=== PATIENT | male | born 1990 | race Caucasian/White ===

== ENCOUNTER 2021-04-23 08:16 | Outpatient (REF) | payer MEDICAID, SELFPAY ==
--- NOTE | ~2021-04-23 | XR_ITS ---
EXAMINATION: XR SHOULDER, LEFT CLINICAL INFORMATION: Left shoulder pain. COMPARISON: None TECHNIQUE: Four views of the left shoulder. FINDINGS: The acromioclavicular joint space measures approximately 0.7 cm. The inferior cortical surface is slightly offset superiorly when compared to the inferior cortical surface of the acromion best seen on the Y projection. The glenohumeral alignments are intact. The soft tissues are unremarkable. XR/XR shoulder LT min 2V IMPRESSION: Radiographs of the left shoulder shows grade 1-2 left acromioclavicular injury. The glenohumeral alignments are intact.
== END 2021-04-23 08:17 | disposition home or self-care (01) ==
LOC: HO.HOSX 08:16
PROVIDERS: Visit Provider Physician Assistant
DX: M25.512 Pain in left shoulder (principal)
CPT/HCPCS: 73030

== ENCOUNTER 2023-04-07 15:32 | Outpatient (REF) | payer MEDICAID, SELFPAY ==
[2023-04-07 17:46] LABS: Alanine Aminotransferase 17 U/L (0-40); Aspartate Amino Transferase 25 U/L (5-37); Estimated Glomerular Filt Rate > 60
[2023-04-08 09:15] LABS: Syphilis Screen Nonreactive (Nonreactive)
[2023-04-08 09:36] LABS: HBS Num1 48.88 mIU/mL (0-7.99); HBc Num1 0.07 S/CO (0.00-0.79); HBsAGNum1 0.42 S/CO (0.00-0.99); HIV AB/AG Nonreactive (Nonreactive); HIV Num 1 0.05 S/CO (0.00-0.99); Hepatitis B Core Antibody Nonreactive (Nonreactive); Hepatitis B Surface Antigen Negative (Negative); ~HepC Num1 0.05 S/CO (0.00-0.79); ~Hepatitis B Surface Antibody REACTIVE (Nonreactive); ~Hepatitis C Antibody Nonreactive (Nonreactive)
[2023-04-09 13:48] LABS: HIV RNA PCR Qn Copies NOT DETECTED copies/mL (NOT DETECTED); HIV RNA PCR Qn Log Copies NOT DETECTED (NOT DETECTED)
== END 2023-04-07 15:33 | disposition home or self-care (01) ==
LOC: HO.HHCL 15:32
PROVIDERS: Visit Provider Nurse Practitioner Primary Care
DX: Z72.51 High risk heterosexual behavior (principal); Z20.6 Contact with and (suspected) exposure to human immunodeficiency virus [HIV]
CPT/HCPCS: 36415; 82565; 84450; 84460; 86704; 86706; 86780; 86803; 87340; 87389; 87536

== ENCOUNTER 2023-05-05 15:37 | Outpatient (REF) | payer MEDICAID, SELFPAY ==
[2023-05-06 03:44] LABS: CT PCR NOT DETECTED (Not Detect.); NG PCR NOT DETECTED (Not Detect.)
[2023-05-06 04:15] LABS: HIV AB/AG Nonreactive (Nonreactive); HIV Num 1 0.06 S/CO (0.00-0.99)
[2023-05-07 18:09] LABS: HIV RNA PCR Qn Copies NOT DETECTED copies/mL (NOT DETECTED); HIV RNA PCR Qn Log Copies NOT DETECTED (NOT DETECTED)
== END 2023-05-05 15:38 | disposition home or self-care (01) ==
LOC: HO.HHCL 15:37
PROVIDERS: Visit Provider Nurse Practitioner Primary Care
DX: Z11.3 Encounter for screening for infections with a predominantly sexual mode of transmission (principal); Z20.6 Contact with and (suspected) exposure to human immunodeficiency virus [HIV]; Z79.899 Other long term (current) drug therapy
CPT/HCPCS: 0353U; 36415; 87389; 87536

== ENCOUNTER 2023-07-04 19:11 | Outpatient (REF) | payer MEDICAID, SELFPAY | END 2023-07-04 19:12 | disposition home or self-care (01) | LOC: HO.HHCLNP 19:11 | PROVIDERS: Visit Provider Registered Nurse | DX: H60.312 Diffuse otitis externa, left ear (principal) | CPT/HCPCS: 87070; 87077; 87147; 87186; 87205 ==

== ENCOUNTER 2024-01-29 15:57 | Outpatient (REF) | payer MEDICAID, SELFPAY ==
[2024-01-29 17:48] LABS: Estimated Glomerular Filt Rate > 60
[2024-01-30 03:46] LABS: Syphilis Screen Nonreactive (Nonreactive)
[2024-01-30 04:10] LABS: ~Hepatitis C Antibody Nonreactive (Nonreactive)
[2024-01-30 14:39] LABS: HIV RNA PCR Qn Copies NOT DETECTED copies/mL (NOT DETECTED); HIV RNA PCR Qn Log Copies NOT DETECTED (NOT DETECTED)
== END 2024-01-29 15:58 | disposition home or self-care (01) ==
LOC: HO.HHCL 15:57
PROVIDERS: Visit Provider Internal Medicine Geriatric Medicine
DX: Z11.3 Encounter for screening for infections with a predominantly sexual mode of transmission (principal)
CPT/HCPCS: 36415; 82565; 86780; 86803; 87536

== ENCOUNTER 2024-05-18 10:43 | Outpatient (REF) | payer MEDICAID, SELFPAY ==
[2024-05-18 14:28] LABS: MANUAL DIFF FLAG NO
[2024-05-18 14:34] LABS: Basophils Percent Auto 0.5 % (0-2); Eosinophils Absolute Auto 0.1 X10*3/uL (0.0-0.4); Hematocrit 42.6 % (42.0-52.0); Hemoglobin 15.1 g/dl (14.0-18.0); Imm Gran Abs Auto 0.01 X10*3/uL (0.00-0.03); Imm Gran Pct Auto 0.2 % (0.0-0.4); Lymphocytes Absolute Auto 2.7 X10*3/uL (1.2-4.9); Lymphocytes Percent Auto 41.5 % (20-40); Mean Corpuscular HGB Conc 35.4 g/dl (31.0-36.0); Mean Corpuscular Hemoglobin 30.9 pg (27.0-33.0); Mean Corpuscular Volume 87.1 fL (80.0-98.0); Mean Platelet Volume 10.7 fL (9.4-12.4); Monocytes Absolute Auto 0.6 X10*3/uL (0.1-1.2); Monocytes Percent Auto 8.4 % (2-11); Neutrophils Absolute Auto 3.1 x10*3/uL (2.0-8.3); Neutrophils Percent Auto 47.4 % (45-73); Platelet Count 215 X10*3/uL (160-400); Red Blood Count 4.89 X10*6/uL (4.60-5.80); White Blood Count 6.6 X10*3/uL (4.8-10.8)
[2024-05-18 18:22] LABS: Alanine Aminotransferase 18 U/L (0-40); Albumin Level 4.5 g/dL (3.5-5.0); Alkaline Phosphatase 108 U/L (39-117); Anion Gap 14 (12-20); Aspartate Amino Transferase 29 U/L (5-37); Bilirubin Total 0.6 mg/dL (0.0-1.0); Blood Urea Nitrogen 12 mg/dL (9-16); Calcium 9.6 mg/dL (8.4-10.2); Carbon Dioxide 24 mmol/L (22-29); Chloride 103 mmol/L (96-108); Cholesterol 194 mg/dL (<200); Estimated Glomerular Filt Rate > 60; Glucose Random 84 mg/dL (60-115); HDL Cholesterol 42 mg/dL (>40); LDL Cholesterol Calculated 132 mg/dL (<100); Potassium 3.4 mmol/L (3.3-5.1); Sodium 138 mmol/L (135-145); Total Protein 7.4 g/dL (6.5-8.0); Triglycerides 101 mg/dL (<150)
[2024-05-19 05:02] LABS: Syphilis Screen Nonreactive (Nonreactive)
[2024-05-19 05:22] LABS: HIV AB/AG Nonreactive (Nonreactive); HIV Num 1 0.05 S/CO (0.00-0.99); ~HepC Num1 0.08 S/CO (0.00-0.79); ~Hepatitis C Antibody Nonreactive (Nonreactive)
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
== END 2024-05-18 10:44 | disposition home or self-care (01) ==
LOC: HO.HHCL 10:43
PROVIDERS: Internal Medicine Geriatric Medicine; Visit Provider Emergency Medicine
DX: Z00.00 Encounter for general adult medical examination without abnormal findings (principal); Z11.3 Encounter for screening for infections with a predominantly sexual mode of transmission; Z13.220 Encounter for screening for lipoid disorders; Z13.1 Encounter for screening for diabetes mellitus
CPT/HCPCS: 36415; 80053; 80061; 82550; 85025; 86780; 86803; 87389

== ENCOUNTER 2024-10-31 14:08 | Outpatient (REF) | payer MEDICARE, MEDICAID, SELFPAY ==
--- NOTE | ~2024-10-31 | MR_ITS ---
EXAMINATION: MR BRAIN WITHOUT IV CONTRAST HISTORY: Migraines worsening in frequency intensity. TECHNIQUE: Sagittal T1, and axial T1, FLAIR, T2, gradient echo, and diffusion weighted MR images of the brain were obtained. COMPARISON: Comparison is made with the prior examination dated 04/01/2019. FINDINGS: The brain parenchyma is unremarkable, demonstrating normal da silva/white differentiation. No foci of abnormal signal intensity are identified. The ventricular system is normal in size and configuration. There is no mass effect or midline shift. No intra or extra-axial fluid collections are identified. There are no foci of restricted diffusion. Normal vascular flow voids are noted in the basilar and carotid arteries. The visualized paranasal sinuses are clear. MR/MR head/brain wo con IMPRESSION: Unremarkable MRI of the brain without contrast. Electronically signed by: Pop Cortez MD 11/01/2024 07:36 AM EDT
--- OUTSIDE RECORDS SUMMARY | 2024-10-31 14:13 | XMS_ITS | Clinical Summary ---
Author Organization [employer] [facility] Address [address] [facility] 7t [place] [address] Care Team Providers Care Lay Out Machine Operator Name Role Phone Name, Gregory EDEN Primary Care Provider [phone] Allergies Active Allergy Reactions Criticality Noted Date Comments Fluphenazine 01/17/2017 Other reaction(s): Dystonic reaction Penicillin G 01/17/2017 Other reaction(s): Hives / Skin Rash Pt told by dad he was allergic to pcn, he has taken amoxicillin, augmentin and other medications without issue in the past Medications * This document contains information received from the source organization and may not represent a complete record from that organization. diphenhydrAMINE (BENADryl) 25 MG capsuleIndicati ons:Allergy, initial encounter TAKE 1 CAPSULE BY MOUTH EVERY 24 HOURS NEEDED 30 capsule 2 08/20/19 23 Active valACYclovir (Valtrex) 1 g tabletIndicatio ns:Cold sore take 2 tablet by oral route twice daily for 1 day at first sign of cold sore 4 tablet 1 02/19/20 23 Active escitalopram (Lexapro) 20 MG tablet Take 20 mg by mouth in the morning. 03/18/20 23 Active clonazePAM (KlonoPIN) 2 MG tablet Take 2 mg by mouth 2 times daily. 03/18/20 23 Active mupirocin (Bactroban) 2 % ointment Apply topically 2 times daily. Apply in each nostril 2x/day for 5 days. 22 g 08/06/19 24 Active fluticasone (Flonase) 50 MCG/ACT nasal spray Administer 2 sprays into each nostril Once per day. Shake gently. Before first use, prime pump. After use, clean tip and replace cap. 16 g 2 04/07/20 24 025 Active docusate sodium (Colace) 100 MG capsule TAKE 1 CAPSULE BY MOUTH EVERY DAY 90 capsule 1 06/01/20 24 Active doxycycline (Vibra-Tabs) 100 MG tabletIndicatio ns:Unprotected sexual intercourse Take 2 tabs once orally within 72 hours of condomless sex,. Take with a full glass of water and do not lie down for at least 30 minutes after. 30 tablet 11 06/08/20 24 Active lactulose (Chronulac) 10 GM/15ML solution TAKE 15 ML BY MOUTH EVERY DAY 473 mL 1 08/31/19 25 Active Descovy 200-25 MG tabletIndicatio ns:On pre-exposure prophylaxis for HIV TAKE 1 TABLET BY MOUTH EVERY DAY IN THE MORNING 30 tablet 2 09/25/19 25 Active SUMAtriptan (Imitrex) 25 MG tabletIndicatio ns:Chronic migraine with aura without status migrainosus, not intractable Take 1 tablet (25 mg) by mouth 1 (one) time if needed for migraine. May repeat dose once in 2 hours if no relief. Do not exceed 2 doses in 24 hours. 15 tablet 10/16/19 25 Active fexofenadine (Harriett) 180 MG tablet TAKE 1 TABLET BY MOUTH EVERY DAY NEEDED FOR ALLERGIES 90 tablet 1 10/27/19 25 Active fexofenadine (Harriett) 180 MG tablet Take 1 tablet (180 mg) by mouth if needed each day (Allergies). 90 tablet 1 04/07/20 24 025 Discontinued Active Problems Problem Noted Date Diagnosed Date On pre-exposure prophylaxis for HIV 05/30/2022 Low vitamin D level 08/03/2019 04/16/2023 Recurrent major depression 09/10/201804/15 Moderate anxiety 09/10/2018 04/16/2023 Chronic insomnia 04/23/2018 04/16/2023 Panic disorder 03/18/2018 04/16/2023 Allergic rhinitis 02/19/2017 04/16/2023 Resolved Problems Problem Noted Date Diagnosed Date Resolved Date Paresthesia of lower extremity 04/16/2023 04/16/2023 04/07/2024 Encounters Date Type Department Care Team Description 10/26/2024 Refill [facility] [address] [place] [phone] Gregory Barfield MD 10/15/2024 1:00 PM EDT Office Visit [facility] [address] [place] [address] [place], [place], GENERAL ADJUSTER Chronic migraine with aura without status migrainosus, not intractable (Primary Dx); Left facial numbness 10/15/2024 Travel 10/14/2024 Telephone [facility] [address] [place] [phone] Gregory Barfield MD Nurse Triage 10/06/2024 3:30 PM EDT Immunization [facility] [address] [place] [phone] Tiffanie Gomez RN Encounter for immunization 09/24/2024 Refill [facility] [address] [place] [phone] Gregory Barfield MD On pre-exposure prophylaxis for HIV 09/09/2024 Telephone [facility] [address] [place] [phone] Gregory Barfield MD Immunizations (Call was placed to reschedule patient for a later time/date due to [facility] being closed the day of previous appt. New appt 10/06/24 at 2:00pm, I was unable to reach the patient and left a voicemail with call back info.) 08/29/2024 Refill [facility] [address] [place] [phone] Gregory Barfield MD from Last 3 Months Immunizations Immunization Administration Dates Next Due Hep A, Adult 04/07/2024,10/01/2018 Hep B, adult 10/06/2024,05/18/2024,04/07/2024 Tdap 09/10/2018 Family History Medical History Relation Name Comments Lung cancer Paternal Grandmother Relation Name Status Comments Paternal Grandmother Social History Tobacco Use Types Packs/Day Years Used Date Smoking Tobacco: Never Smokeless Tobacco: Never Tobacco Cessation:Counseling Given: Not Answered Alcohol Use Standard Drinks/Week Comments Never 0 (1 standard drink = 0.6 oz pur e alcohol) Depression Answer Date Recorded Patient Health Questionnaire-9 Score 13 04/07/2024 Patient Health Questionnaire-9 Score 13 04/07/2024 Last PHQ-9: Questionnaire Data Not on file 1 Housing Stability Answer Date Recorded What is your housing situation today? I have eliazar sawant 04/07/[address] you li ve. Do you have problems with any of the following? Pests such as bugs, ants, or mice 04/07/2024 Food Insecurity Answer Date Recorded Within the past 12 months, y ou worried that your food would run out before you got money to buy more: Sometimes True 2023 Within the past 12 months,th e food you bought just didn't last and you didn't have enough money to get more: Sometimes True 04/07/2024 Transportation Answer Date Recorded In the past 12 months, has l ack of transportation kept you from medical appts, meetings, work or from getting things needed for daily living? I am not sure 04/07/2024 Utilities Answer Date Recorded In the past 12 months, has t he electric, gas, oil or water company threatened to shut off services in your home? No 04/16/2023 Depression Answer Date Recorded Patient Health Questionnaire-2 Score 2 04/07/2024 Internet Access Answer Date Recorded Internet Access Q1 Yes 03/31/2024 Internet Access Q2 Not on file 03/31/2024 Sex and Gender Information Value Date Recorded Sex Assigned at Male 04/15/2022 10:31 AM EDT Legal Sex Male 10:31 AM EDT Gender Identity Male 04/15/2022 10:31 AM EDT Sexual Orientation Lesbian or Presley 04/15/2022 10 :31 AM EDT Last Filed Vital Signs Vital Sign Reading Time Taken Comments Blood Pressure 128/88 10/15/2024 1:55 PM EDT Pulse 106 10/15/2024 1:23 PM EDT Temperature 36.7 ??C (98 ??F) 10/15/2024 1:23 PM EDT Respiratory Rate 17 10/15/2024 1:23 PM EDT Oxygen Saturation 96% 04/07/2024 3:04 PM EDT Inhaled Oxygen Concentration - - Weight 90.4 kg (199 lb 6.4 oz) 10/15/2024 1:23 P M EDT Height 177.8 cm (5' 10 ) 10/15/2024 1:23 PM EDT Body Mass Index 28.61 10/15/2024 1:23 PM EDT Plan of Treatment Health Maintenance Due Date Last Done Comments Family Planning (PISQ) 2004 COVID-19 Vaccine ( season) 2024 Influenza Vaccine (#1) 2024 Alcohol/Substance Use Screening 04/07/2025 04/07/2024 Depression Screening 04/07/2025 04/07/2024, 04/07/20 24 SDOH Screening 04/07/2025 04/07/2024 Tobacco Screening 10/18/2025 10/18/2024 DTaP/Tdap/Td Vaccines (2 - Td or Tdap) 09/10/2028 09/10/2018 Lipid Panel 05/18/2029 05/18/2024, 09/03/2021 Zoster Vaccines (1 of 2) 2039 RSV Patients and Patients Aged 60 years or older (1 - 1-dose 75+ series) 2064 Hepatitis A Vaccines Completed 04/07/2024, 10/02/19 19 HIV Screening Completed 05/18/2024, 01/14, 05/05/2023, Additional history exists Hepatitis C Screening Completed 05/18/2024 , 01/29/2024, 04/07/2023, Additional history exists Hepatitis B Vaccines Completed 10/06/2024, 05/18/2024, 04/07/2024 HIB Vaccines Aged Out No longer eligi ble based on patient's age to complete this topic HPV Vaccines Aged Out No longer eligi ble based on patient's age to complete this topic IPV Vaccines Aged Out No longer eligi ble based on patient's age to complete this topic Meningococcal B Vaccine Aged Out No l onger eligible based on patient's age to complete this topic Meningococcal Vaccine Aged Out No anjel matt eligible based on patient's age to complete this topic Pneumococcal Vaccine: Pediatrics (0 to 5 Years) and At-Risk Patients (6 to 49) Years) Aged Out No longer eligible based on patient's age to complete this topic RSV under 20 months Aged Out No longe r eligible based on patient's age to complete this topic Rotavirus Vaccines Aged Out No longer eligible based on patient's age to complete this topic Procedures Procedure Name Priority Date/Time Associated Diagnosis Comments HEPATITIS C ANTIBODY Routine 05/18/2024 10:50 AM EST Screening for STD (sexually transmitted disease) HIV 1/2 ANTIGEN/ANTIBODY, FOURTH GENERATION W/RFL Routine 05/18/2024 10:50 AM EST Screening for STD (sexually transmitted disease) LIPID PANEL, STANDARD Routine 05/18/2024 10:50 AM EST PE (physical exam), routine Screening for cholesterol level from Last 3 Months or Most Recently Relevant to Health Maintenance Results * Hepatitis C Ab (05/18/2024 10:50 AM EST) Hepatitis C Antibody Nonreactive Nonreactive [facility] Comment:Antibodies to HCV no t detected; does not exclude early acuteHCV infection. 05/18/2024 10:5 0 AM EST 05/18/2024 2:31 PM EST us Deshawn Lorenzana MD LAB BLOOD ORDERABLES Final Resul t [facility] [address] [place] [phone] * HIV-1/2 Antigen and Antibodies, Fourth Generation, with Reflexes (05/18/2024 10:50 AM EST) HIV AB/AG Nonreactive Nonreactive [facility] Comment:HIV-1 p24 Ag and/or HIV-1/HIV-2 Ab not detected.A test result that is nonreactive does not exclude thepossibility of exposure to or infection with HIV-1 and/orHIV-2. Nonreactive results in this assay for individualswith prior exposure to HIV-1 and/or HIV-2 may be due toantigen and antibody levels that are below the limit ofdetection of this assay.The [email or web address] HIV Ag/Ab Combo assay result andsupplemental assay results should be interpreted inconjunction with the patient's clinical presentation,history and other laboratory results. If the results areinconsistent with clinical evidence, additional testing issuggested to confirm the result. 05/18/2024 10:5 0 AM EST 05/18/2024 2:31 PM EST Deshawn Lorenzana MD LAB BLOOD ORDERABLES Final Resul t Performing Organization Address [facility] Co de Phone Number [facility] [address] [place] [phone] * (ABNORMAL) Lipid Panel, Standard (05/18/2024 10:50 AM EST) Triglycerides 101 <150 mg/dL [facility] Comment:Desirable Triglyceri de: less than 150 mg/dLBorderline High Triglyceride 150-199 mg/dLHigh Triglyceride: 200-499 mg/dLVery High Triglyceride: greater than or equal to 5OO mg/dL Cholesterol 194 <200 mg/dL [facility] Comment:Desirable Cholestero l: less than 200 mg/dLBorderline High Cholesterol: 200-239 mg/dLHigh Cholesterol: greater than 239 mg/dL LDL Cholesterol Calculated 132(H) <100 mg/dL [facility] Comment:Desirable LDL: less than 100 mg/dLNear Optimal/Above Optimal LDL: 110- 129 mg/dLBorderline High LDL: 130-159 mg/dLHigh LDL: 160-189 mg/dLVery High LDL: greater than or equal to 190 mg/dL HDL Cholesterol 42 >40 mg/dL [facility] Comment:Desirable HDL: great er than 40 mg/dL Note: This HDL assay may give artificially low results in patients with liver disease. Blood Venous blood specimen / Unknown 05/18/2024 10:50 AM EST 05/18/2024 2:31 PM EST Gregory Barfield MD LAB BLOOD ORDERABLES Final Resul t Performing Organization Address [facility] Co de Phone Number [facility] [address] [place] [phone] from Last 3 Months or Most Recently Relevant to Health Maintenance Insurance [facility] [address] Natalie [place] [facility] C3 [facility] STANDARD Member Subscriber Plan / Payer ( fective 2024-Present) Name:Max Gorman Relation to Subscriber:Self Name:Max Gorman Payer ID:Not on file Group ID:Not on file Type:Medicaid Address: [address] MED[address]ARE 1 [place] [id number] 1 Natalie [place] Care Teams Lay Out Machine Operator Relationship Specialty Start Date End Date Name, MD Gregory [address] [place] [address] PCP - General Family Medicine 07/20/19
--- OUTSIDE RECORDS SUMMARY | 2024-10-31 14:13 | XMS_ITS | Encounter Summary ---
Author Organization [employer] Address [address] [facility] 7t [place] [address] Care Team Providers Care Neighborhood Conservation Officer Name Role Phone Name, Gregory EDEN Primary Care Provider [phone] Reason for Visit * Reason Comments Med Refill Encounter Details Date Type Department Care Team ([facility] Contact Info) Description 04/25/2024 Refill [facility] [address] [place], [place] [phone] Name, MD Gregory [address] [place], [place] [phone] On pre-exposure prophylaxis for HIV Social History Tobacco Use Types Packs/Day Years Used Date Smoking Tobacco: Never Smokeless Tobacco: Never Alcohol Use Standard Drinks/Week Comments Never 0 [...] or Presley 04/15/2022 10 :31 AM EDT documented as of this encounter Plan of Treatment Not on file documented as of this encounter Visit Diagnoses Diagnosis On pre-exposure prophylaxis for HIV documented in this encounter Additional Health Concerns Assessment Noted Time PHQ-9 Depression Total Score: 13 024 3:46 PM EDT documented as of this encounter Care Teams Neighborhood Conservation Officer Relationship Specialty Start Date End Date Name, MD Gregory [address] [place] [address] PCP - General Family Medicine 07/20/19 documented as of this encounter
--- OUTSIDE RECORDS SUMMARY | 2024-10-31 14:13 | XMS_ITS | Encounter Summary ---
Author Organization [employer] Address [address] [facility] 7t [place] [address] Care Team Providers Care Retirement Sales Consultant Name Role Phone Name, Gregory EDEN Primary Care Provider [phone] Reason for Visit * Reason Comments Med Refill Encounter Details Date Type Department Care Team ([facility] Contact Info) Description 05/15/2023 Refill [facility] [address] [place], [place] [phone] Karyna Sosa FNP [address] [place] [address] Social History Tobacco Use Types Packs/Day Years Used Date Smoking Tobacco: Never Smokeless Tobacco: Never Housing Stability Answer Date Recorded What is your housing situation today? I have eliazar sawant 04/16/[address] you li ve. Do you have problems with any of the following? None of the above 04/16/2023 Food Insecurity Answer Date Recorded Within the past 12 months, y ou worried that your food would run out before you got money to buy more: Never True 04/16/2023 Within the past 12 months,th e food you bought just didn't last and you didn't have enough money to get more: Never True 06/2022 Transportation Answer Date Recorded In the past 12 months, has l ack of transportation kept you from medical appts, meetings, work or from getting things needed for daily living? No 04/16/2023 Utilities Answer Date Recorded In the past 12 months, has t he electric, gas, oil or water company threatened to shut off services in your home? No 04/16/2023 Depression Answer Date Recorded Patient Health Questionnaire-2 Score 4 04/16/2023 Sex and Gender Information Value Date Recorded Sex Assigned at Male 04/15/2022 10:31 AM EDT Legal Sex Male 10:31 AM EDT Gender Identity Male 04/15/2022 10:31 AM EDT Sexual Orientation Lesbian or Presley 04/15/2022 10 :31 AM EDT documented as of this encounter Plan of Treatment Not on file documented as of this encounter Visit Diagnoses Not on filedocumented in this encounter Care Teams Retirement Sales Consultant Relationship Specialty Start Date End Date Name, MD Gregory [address] [place] [address] PCP - General Family Medicine 07/20/19 documented as of this encounter
--- OUTSIDE RECORDS SUMMARY | 2024-10-31 14:13 | XMS_ITS | Encounter Summary ---
Author Organization [employer] Address [address] [place] [address] 7t [place] [address] Care Team Providers Care Station Repairer Name Role Phone Name, Gregory EDEN Primary Care Provider [phone] Encounter Details Date Type Department Care Team ([facility] st Contact Info) Description 08/19/2022 Orders Only [facility] [address] [place] [address] Chantelle Jurado LPN Social History Tobacco Use Types Packs/Day Years Used Date Smoking Tobacco: Never Assessed Sex and Gender Information Value Date Recorded [...] on filedocumented in this encounter Care Teams Station Repairer Relationship Specialty Start Date End Date Name, MD Gregory [address] [place] [phone] PCP - General Family Medicine 07/20/19 documented as of this encounter
--- OUTSIDE RECORDS SUMMARY | 2024-10-31 14:13 | XMS_ITS | Encounter Summary ---
Author Organization [facility] Address [address] [facility] 7t [place] [address] Care Team Providers Care Project Controls Specialist Name Role Phone Name, Gregory EDEN Primary Care Provider [phone] Reason for Visit * Reason Comments Med Refill Encounter Details Date Type Department Care Team ([facility] Contact Info) Description 06/29/2024 Refill [facility] [address] [place], [place] [phone] Name, MD Gregory [address] [place], [place] [phone] Social History Tobacco Use Types Packs/Day Years [...] Diagnoses Not on filedocumented in this encounter Additional Health Concerns Assessment Noted Time PHQ-9 Depression Total Score: 13 024 3:46 PM EDT documented as of this encounter Care Teams Project Controls Specialist Relationship Specialty Start Date End Date Name, MD Gregory [address] [place] [address] PCP - General Family Medicine 07/20/19 documented as of this encounter
--- OUTSIDE RECORDS SUMMARY | 2024-10-31 14:13 | XMS_ITS | Encounter Summary ---
Author Organization [employer] Address [address] [facility] 7t [place] [address] Care Team Providers Care Space Scheduler Name Role Phone Name, Gregory EDEN Primary Care Provider [phone] Reason for Visit * Reason Comments Med Refill Encounter Details Date Type Department Care Team ([facility] Contact Info) Description 12/31/2023 Refill [facility] MEDICINE [address] [place], [place] [phone] Name, MD Gregory [address] [place], [place] [phone] On pre-exposure prophylaxis for HIV Social History Tobacco Use Types Packs/Day Years Used Date Smoking Tobacco: Never Smokeless Tobacco: Never Depression Answer Date Recorded Patient Health Questionnaire-9 Score 13 07/07/2023 Patient Health Questionnaire-9 Score 13 07/07/2023 Last PHQ-9: Questionnaire Data Not on file 0 07/07/2023 Housing Stability Answer Date Recorded What is [...] Date Recorded Patient Health Questionnaire-2 Score 2 07/07/2023 Sex and Gender Information Value Date Recorded [...] Time PHQ-9 Depression Total Score: 13 024 8:29 AM EST documented as of this encounter Care Teams Space Scheduler Relationship Specialty Start Date End Date Name, MD Gregory [address] [place] [address] PCP - General Family Medicine 07/20/19 documented as of this encounter
--- OUTSIDE RECORDS SUMMARY | 2024-10-31 14:13 | XMS_ITS | Encounter Summary ---
Author Organization [employer] Address [address] [facility] 7t [place] [address] Care Team Providers Care Sheep And Wheat Farmer Name Role Phone Name, Gregory EDEN Primary Care Provider [phone] Reason for Visit * Reason Comments Med Refill Encounter Details Date Type Department Care Team ([facility] Contact Info) Description 10/26/2024 Refill [facility] MEDICINE 230 [place], [place] [phone] Name, MD Gregory 230 [place], [place] [phone] Social History Tobacco Use Types Packs/Day Years [...] documented as of this encounter Care Teams Sheep And Wheat Farmer Relationship Specialty Start Date End Date Name, MD Gregory 230 [place] [address] PCP - General Family Medicine 07/20/19 documented as of this encounter
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
== END 2024-10-31 14:09 | disposition home or self-care (01) ==
LOC: HO.MRI 14:08
PROVIDERS: PCP Internal Medicine Geriatric Medicine; Visit Provider Registered Nurse
DX: G43.E09 Chronic migraine with aura, not intractable, without status migrainosus (principal); R20.0 Anesthesia of skin
CPT/HCPCS: 70551

== ENCOUNTER → 2024-10-31 14:20 | Outpatient (BNV) | payer MEDICARE, MEDICAID, SELFPAY | PROVIDERS: PCP Internal Medicine Geriatric Medicine; Visit Provider Radiology Diagnostic Radiology | DX: G43.909 Migraine, unspecified, not intractable, without status migrainosus (principal) | CPT/HCPCS: 70551 ==

== ENCOUNTER 2025-03-02 13:08 | Outpatient (REF) | payer MEDICARE, MEDICAID, SELFPAY ==
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
[2025-03-02 16:34] LABS: Anion Gap 11 (12-20); Blood Urea Nitrogen 9 mg/dL (9-16); Calcium 9.4 mg/dL (8.4-10.2); Carbon Dioxide 27 mmol/L (22-29); Chloride 106 mmol/L (96-108); Cholesterol 186 mg/dL (<200); Estimated Glomerular Filt Rate > 60; HDL Cholesterol 41 mg/dL (>40); Potassium 3.7 mmol/L (3.3-5.1); Sodium 140 mmol/L (135-145); Triglycerides 118 mg/dL (<150)
--- OUTSIDE RECORDS SUMMARY | 2025-03-02 16:46 | XMS_ITS | Encounter Summary ---
Author Organization [employer] Address [address] [facility] 7t [place] [address] Care Team Providers Care Senior Sales Operations Analyst Name Role Phone Name, Gregory EDEN Primary Care Provider [phone] Reason for Visit * Reason Comments Med Refill Encounter Details Date Type Department Care Team ([facility] Contact Info) Description 04/25/2024 Refill [facility] MEDICINE 230 [place], [place] [phone] Name, MD Gregory [address] [place], [place] [phone] On pre-exposure prophylaxis for HIV Social History [...] as of this encounter Plan of Treatment Upcoming Encounters Date Type Department Care Team (Late st Contact Info) Description 04/19/2025 2:45 PM EST Office Visit [facility] MEDICINE [address] [place] [phone] NameGregory MD 230 [place] [address] documented as of this encounter Visit Diagnoses Diagnosis On pre-exposure prophylaxis for HIV documented in this encounter Additional Health Concerns Assessment Noted Time PHQ-9 Depression Total Score: 13 024 3:46 PM EDT documented as of this encounter Care Teams Senior Sales Operations Analyst Relationship Specialty Start Date End Date Gregory Barfield MD [address] [place] [address] PCP - General Family Medicine 07/20/19 documented as of this encounter
--- OUTSIDE RECORDS SUMMARY | 2025-03-02 16:46 | XMS_ITS | Encounter Summary ---
Author Organization [employer] Address [address] [facility] 7t [place] [address] Care Team Providers Care Warehouse Team Member Name Role Phone Name, Gregory EDEN Primary Care Provider Reason for Visit * Reason Comments Med Refill Encounter Details Date Type Department Care Team ([facility] Contact Info) Description 05/15/2023 Refill [facility] 230 [place], [place] [phone] Karyna Sosa FNP 230 [place] [address] Social History Tobacco Use Types Packs/Day Years [...] Description 04/19/2025 2:45 PM EST Office Visit [facility] [address] [place] [address] Name, MD Gregory [address] [place] [address] documented as of this encounter Visit Diagnoses Not on filedocumented in this encounter Care Teams Warehouse Team Member Relationship Specialty Start Date End Date Name, MD Gregory [address] [place] [address] PCP - General Family Medicine 07/20/19 documented as of this encounter
--- OUTSIDE RECORDS SUMMARY | 2025-03-02 16:46 | XMS_ITS | Encounter Summary ---
Author Organization [employer] Address [address] [place] [address] 7 [place] [address] Care Team Providers Care Channel Machine Operator Name Role Phone Name, Gregory EDEN Primary Care Provider [phone] Encounter Details Date Type Department Care Team (Late st Contact Info) Description 08/19/2022 Orders Only [facility]S [address] [place], [place] [phone] Chantelle Jurado LPN Social History Tobacco Use [...] Description 04/19/2025 2:45 PM EST Office Visit [facility] MEDICINE 230 [place] [address] Gregory Barfield MD 230 [place] [address] documented as of this encounter Visit Diagnoses Not on filedocumented in this encounter Care Teams Channel Machine Operator Relationship Specialty Start Date End Date Gregory Barfield MD 230 [place] [address] PCP - General Family Medicine 07/20/19 documented as of this encounter
--- OUTSIDE RECORDS SUMMARY | 2025-03-02 16:46 | XMS_ITS | Encounter Summary ---
Author Organization [employer] Address [address] [facility] 7t [place] [address] Care Team Providers Care Zipper Setter Name Role Phone Name, Gregory EDEN Primary Care Provider [phone] Reason for Visit * Reason Comments Med Refill Encounter Details Date Type Department Care Team ([facility] Contact Info) Description 06/29/2024 Refill [facility] MEDICINE 230 [place], [place] [phone] Name, MD Gregory [address] [place], [place] [phone] Social History Tobacco Use Types Packs/Day Years [...] Description 04/19/2025 2:45 PM EST Office Visit [facility] MED[facility]INE [address] [place] [address] Name, MD Gregory 230 [place] [address] documented as of this encounter Visit Diagnoses Not on filedocumented in this encounter Additional Health Concerns Assessment Noted Time PHQ-9 Depression Total Score: 13 024 3:46 PM EDT documented as of this encounter Care Teams Zipper Setter Relationship Specialty Start Date End Date NameGregory MD [address] [place] [address] PCP - General Family Medicine 07/20/19 documented as of this encounter
--- OUTSIDE RECORDS SUMMARY | 2025-03-02 16:46 | XMS_ITS | Clinical Summary ---
Author Organization [employer] Address [address] [place] [address] 7t [place] [address] Care Team Providers Care Reimbursement Auditor Name Role Phone Name, Gregory EDEN Primary Care Provider [phone] Allergies Active Allergy Reactions Criticality Noted Date [...] 5 days. 22 g 08/06/19 24 Active doxycycline (Vibra-Tabs) 100 MG tabletIndicatio ns:Unprotected sexual intercourse Take 2 tabs once orally within 72 hours of condomless sex,. Take with a full glass of water and do not lie down for at least 30 minutes after. 30 tablet 11 06/08/20 24 Active fexofenadine (Harriett) 180 MG tablet TAKE 1 TABLET BY MOUTH EVERY DAY NEEDED FOR ALLERGIES 90 tablet 1 10/27/19 25 Active docusate sodium (Colace) 100 MG capsule TAKE 1 CAPSULE BY MOUTH EVERY DAY 90 capsule 1 11/25/19 25 Active Descovy 200-25 MG tabletIndicatio ns:On pre-exposure prophylaxis for HIV TAKE 1 TABLET BY MOUTH EVERY DAY IN THE MORNING 30 tablet 2 12/17/19 25 Active fluticasone (Flonase) 50 MCG/ACT nasal spray SPRAY 2 SPRAYS INTO EACH NOSTRIL EVERY DAY. SHAKE GENTLY. BEFORE FIRST USE, PRIME PUMP. AFTER USE, CLEAN TIP AND REPLACE CAP. 16 g 2 12/23/19 25 Active SUMAtriptan (Imitrex) 25 MG tabletIndicatio ns:Chronic migraine with aura without status migrainosus, not intractable TAKE 1 TABLET (25 MG) BY MOUTH 1 (ONE) TIME IF NEEDED FOR MIGRAINE. MAY REPEAT DOSE ONCE IN 2 HOURS IF NO RELIEF. DO NOT EXCEED 2 DOSES IN 24 HOURS. 15 tablet 01/28/20 25 Active lactulose (Chronulac) 10 GM/15ML solution TAKE 15 ML BY MOUTH EVERY DAY 473 mL 1 02/17/20 25 Active lactulose (Chronulac) 10 GM/15ML solution TAKE 15 ML BY MOUTH EVERY DAY 473 mL 1 12/23/19 25 025 Discontinued Active Problems Problem Noted Date [...] Encounters Date Type Department Care Team Description 02/15/2025 Refill [facility] MED[facility]INE [address] [place] [address] Gregory Barfield MD 01/31/2025 Orders Only [facility] [address] [place] [address] Evangelist Alva RN 01/28/2025 Telephone [facility] [address] [place] [address] Manuel De La Cruz MA ocotober recalls 01/28/2025 Telephone [facility] [address] [place] [address] Manuel De La Cruz MA 01/27/2025 Refill [facility] [address] [place] [address] Gregory Barfield MD Chronic migraine with aura without status migrainosus, not intractable 12/21/2024 Refill [facility] [address] [place] [address] Gregory Barfield MD Unprotected sexual intercourse; On pre-exposure prophylaxis for HIV 12/15/2024 Refill [facility] [address] [place] [address] Gregory Barfield MD On pre-exposure prophylaxis for HIV from Last 3 Months Immunizations Immunization Administration [...] is your housing situation today? I have eliazararmand sawant 04/07/[address] you [...] 106 10/15/2024 1:23 PM EDT Temperature 36.7 C (98 F) 10/15/2024 1:23 PM EDT Respiratory Rate 17 10/15/2024 1:23 PM EDT Oxygen Saturation 96% 04/07/2024 3:04 PM EDT Inhaled Oxygen Concentration - - Weight 90.4 kg (199 lb 6.4 oz) 10/15/2024 1:23 P M EDT Height 177.8 cm (5' 10 ) 10/15/2024 1:23 PM EDT Body Mass Index 28.61 10/15/2024 1:23 PM EDT Plan of Treatment Upcoming Encounters Date Type Department Care Team (Late st Contact Info) Description 04/19/2025 2:45 PM EST Office Visit [facility]INE [address] [place] [address] Name, MD Gregory 230 [place] [address] Health Maintenance Due Date Last Done Comments Family Planning (PISQ) 2004 HPV Vaccines (1 - Male 3-dose series) 2004 Depression Monitoring 10/06/2024 04/07/2024, 024 COVID-19 Vaccine (1 - season) 2025 Influenza Vaccine (#1) 2025 Alcohol/Substance Use Screening 04/07/2025 04/07/2024 SDOH Screening 04/07/2025 04/07/2024 Disability Screening 10/15/2025 10/15/2024 Tobacco Screening 10/18/2025 10/18/2024 DTaP/Tdap/Td Vaccines (2 - Td or Tdap) 09/10/2028 09/10/2018 Lipid Panel 05/18/2029 05/18/2024, 09/03/2021 Zoster Vaccines (1 of 2) 2039 RSV Patients and Patients Aged 60 years or older (1 - 1-dose 75+ series) 2064 Hepatitis A Vaccines Completed 04/07/2024, 10/02/19 Hepatitis B Vaccines Completed 10/06/2024, 05/18/2024, 04/07/2024 HIV Screening Completed 01/24/2025, 10/14, 05/18/2024, Additional history exists Hepatitis C Screening Completed 01/24/2025 , 10/26/2024, 05/18/2024, Additional history exists HIB Vaccines Aged Out No longer eligi [...] Years) and At-Risk Patients (6 to 49) Years Aged Out No longer eligible based on patient's age to complete this topic RSV under 20 months Aged Out No longe r eligible based on patient's age to complete this topic Rotavirus Vaccines Aged Out No longer eligible based on patient's age to complete this topic Procedures Procedure Name Priority Date/Time Associated Diagnosis Comments CHLAMYDIA/GONORRHEA - URINE ([place] DP) Routine 01/24/2025 HIV ANTIBODY/ANTIGEN ([place] DP) Routine 01/24/2025 HEPATITIS C ANTIBODY ([place] DPH) Routine 01/24/2025 SYPHILIS ABS ([place] DP) Routine 01/24/2025 CHLAMYDIA/GONORRHEA RECTAL SWAB ([place] DP) Routine 01/24/2025 CHLAMYDIA/GONORRHEA THROAT SWAB ([place] DP) Routine 01/24/2025 LIPID PANEL, STANDARD Routine 05/18/2024 10:50 AM EST PE (physical exam), routine Screening for cholesterol level from Last 3 Months or Most Recently Relevant to Health Maintenance Results * Chlamydia/Gonorrhea, Rectal Swab ([place] DP) (01/24/2025) Chlamydia Rectal Swab Negative Negative, Indeterminate, None Detected, Invalid, Specimen unsatisfactory for evaluation, 2+ Gonorrhea Rectal Swab Negative Negative, Indeterminate, None Detected, Invalid, Specimen unsatisfactory for evaluation, 2+ Swab 01/24/2025 us Historical Provider LAB MICROBIOLOGY - GENERA L ORDERABLES Edited Result - Final * Chlamydia/Gonorrhea Throat Swab ([place] DP) (01/24/2025) Chlamydia Throat Swab Negative Gonorrhea Throat Swab Negative Swab 01/24/2025 us Historical Provider LAB MICROBIOLOGY - GENERA L ORDERABLES Final Result * Chlamydia/Gonorrhea, Urine ([place] DP) (01/24/2025) Chlamydia, Urine Negative Negative, Indeterminate, None Detected, Invalid, Specimen unsatisfactory for evaluation, Weakly Positive, 2+ Gonorrhea, Urine Negative Negative, Indeterminate, None Detected, Invalid, Specimen unsatisfactory for evaluation, Weakly Positive, 2+ Urine 01/24/2025 [facility] MD LAB URINE ORDERABLES Anjali l Result * Syphilis Antibodies (DPH) (01/24/2025) Pathologist [facility] [place] Syphilis Abs Nonreactive Borderline, Nonreactive, Weakly Reactive, Inconclusive, Specimen unsatisfactory for evaluation Blood Venous blood specimen / Unknown 01/24/2025 [facility] MD LAB BLOOD ORDERABLES Anjali l Result * Hepatitis C Antibody ([place] [facility]) (01/24/2025) Pathologist [facility] [place] Hepatitis C Ab Nonreactive Blood 01/24/2025 Result [facility] MD LAB BLOOD ORDERABLES Anjali l Result * HIV Ab/Ag ([facility]) (01/24/2025) Pathologist [facility] [place] HIV Ag/Ab Nonreactive Blood 01/24/2025 Result [facility] MD LAB BLOOD ORDERABLES Edit ed Result - Final * (ABNORMAL) Lipid Panel, Standard (05/18/2024 10:50 AM EST) Pathologist [facility] Triglycerides 101 <150 mg/dL [facility] Comment:Desirable Triglyceri de: less than 150 mg/dLBorderline High Triglyceride 150-199 mg/dLHigh Triglyceride: 200-499 mg/dLVery High Triglyceride: greater than or equal to 5OO mg/dL Cholesterol 194 <200 mg/dL [facility] Comment:Desirable Cholestero l: less than 200 mg/dLBorderline High Cholesterol: 200-239 mg/dLHigh Cholesterol: greater than 239 mg/dL LDL Cholesterol Calculated 132(H) <100 mg/dL [facility] Comment:Desirable LDL: less than 100 mg/dLNear Optimal/Above Optimal LDL: 110- 129 mg/dLBorderline High LDL: 130-159 mg/dLHigh LDL: 160-189 mg/dLVery High LDL: greater than or equal to 190 mg/dL HDL Cholesterol 42 >40 mg/dL [facility] Comment:Desirable HDL: great er than 40 mg/dL Note: This HDL assay may give artificially low results in patients with liver disease. Blood Venous blood specimen / Unknown 05/18/2024 10:50 AM EST 05/18/2024 2:31 PM EST us Gregory Barfield MD LAB BLOOD ORDERABLES Final Resul t [facility] [address] [place] [phone] from Last 3 Months or Most Recently Relevant to Health Maintenance Insurance [place] [id number] Member Subscriber Plan / Payer (Ef fective 2022-Present) Name:Max Gorman Relation to Subscriber:Self Name:Max Gorman Payer ID:Not on file Group ID:Not on file Type:Medicaid Address: [address] STANDARD MEDICARE [address] [place] [address] 1 [place] [address] 1 [place] [address] Care Teams Reimbursement Auditor Relationship Specialty Start Date End Date Name, MD Gregory [address] [place], [place] [address]Just[place] [address] PCP - General Family Medicine 07/20/19
--- OUTSIDE RECORDS SUMMARY | 2025-03-02 16:46 | XMS_ITS | Encounter Summary ---
Author Organization [employer] Address [address] [place] [address] 7 [place] [address] Care Team Providers Care Supervising Film Or Videotape Editor Name Role Phone Name, Gregory EDEN Primary Care Provider [phone] Reason for Visit * Reason Comments Med Refill Encounter Details Date Type Department Care Team ([facility] Contact Info) Description 12/31/2023 Refill [facility] MEDICINE 230 [place], [place] [phone] Name, MD Gregory [address] [place], [place] [phone] On pre-exposure prophylaxis for HIV Social History [...] Description 04/19/2025 2:45 PM EST Office Visit [facility] MEDICINE [address] [place] [address] Name, MD Gregory [address] [place] [address] documented as of this encounter Visit Diagnoses Diagnosis On pre-exposure prophylaxis for HIV documented in this encounter Additional Health Concerns Assessment Noted Time PHQ-9 Depression Total Score: 13 024 8:29 AM EST documented as of this encounter Care Teams Supervising Film Or Videotape Editor Relationship Specialty Start Date End Date NameGregory MD [address] [place] [address] PCP - General Family Medicine 07/20/19 documented as of this encounter
== END 2025-03-02 13:09 | disposition home or self-care (01) ==
LOC: HO.HHCL 13:08
PROVIDERS: PCP Internal Medicine Geriatric Medicine; Visit Provider Clinical Nurse Specialist Psychiatric/Mental Health
DX: Z79.899 Other long term (current) drug therapy (principal)
CPT/HCPCS: 36415; 80048; 80061; 82652; 84443